=== PATIENT | female | born 1995 | race Asian ===

== ENCOUNTER 2024-10-05 09:44 | Emergency (ER) | payer OTHER ==
[2024-10-05 10:32] VITALS: BP 134/87; PULSE 105; RESP 18; TEMP 98.8; BMI 21.6
[2024-10-05] MEDS ORDERED: ACETAMINOPHEN 500 MG TABLET (FP) ONE (10:34)
[2024-10-05] MEDS: ACETAMINOPHEN 500 MG TABLET (FP) PO ONE (10:39)
[2024-10-05] MEDS ORDERED: BACITRACIN ZINC 15 GM TUBE TOPICAL OINTMENT ONE (10:58)
[2024-10-05] MEDS: BACITRACIN ZINC 15 GM TUBE TOPICAL OINTMENT TP ONE (10:58)
[2024-10-05] MEDS: AMOX TR/POT CLAV 875MG/125MG TABLETS (FP) PO ONE ×2 (11:18)
[2024-10-05 12:32] LABS: HIV INTERPRETATION NEGATIVE (NEGATIVE)
[2024-10-05 12:35] LABS: HCV DIAGNOSTIC IN-HOUSE W/RFLX NON-REACTIVE (NONREACTIVE)
== END 2024-10-05 12:12 | disposition home or self-care (01) ==
LOC: JER 09:44 → JERFT 09:44
DX: S81.831A Puncture wound without foreign body, right lower leg, initial encounter (principal); R00.0 Tachycardia, unspecified; W55.01XA Bitten by cat, initial encounter
CPT/HCPCS: 36415; 86803; 87389; 99283-25